=== PATIENT | female | born 1935 | race Caucasian/White ===

== ENCOUNTER 2024-05-25 14:05 | Observation (INO) | payer MEDICARE ==
[2024-05-25 15:20] LABS: INR 0.9 (<1.2); Partial Thromboplastin Time 22.6 sec (22.0-30.0); Prothrombin Time 10.3 sec (10.0-12.5)
[2024-05-25 15:23] LABS: ALT 37 U/L (4-34); AST 36 U/L (14-36); African American GFR (CKD) 48 (>60 ml/min/1.73 sqM); Albumin 4.8 g/dL (3.5-5.0); Alkaline Phosphatase 56 U/L (38-126); Anion Gap 7 mmol/L; Blood Urea Nitrogen 31 mg/dL (7-17); Calcium 10.7 mg/dL (8.4-10.2); Carbon Dioxide 28 mmol/L (22-30); Chloride 96 mmol/L (98-107); Glucose 106 mg/dL (74-99); Magnesium 1.7 mg/dL (1.6-2.3); Non-African American GFR(CKD) 42 (>60 ml/min/1.73 sqM); Potassium 4.8 mmol/L (3.5-5.1); Sodium 131 mmol/L (137-145); Total Bilirubin 0.8 mg/dL (0.2-1.3); Total Protein 7.8 g/dL (6.3-8.2)
[2024-05-25 15:38] LABS: Basophils % (A) 0 %; Eosinophils # (A) 0.3 k/uL (0-0.7); Eosinophils % (A) 2 %; HCT 37.5 % (34.0-46.0); HGB 12.4 gm/dL (11.4-16.0); Lymphocytes # (A) 0.9 k/uL (1.0-4.8); Lymphocytes % (A) 8 %; MCH 32.8 pg (25.0-35.0); MCHC 33.2 g/dL (31.0-37.0); MCV 98.9 fL (80.0-100.0); Mean Platelet Volume 8.6; Monocytes # (A) 0.3 k/uL (0-1.0); Monocytes % (A) 2 %; Neutrophils % (A) 87 %; Platelet Count 346 k/uL (150-450); RBC 3.79 m/uL (3.80-5.40); RDW 13.3 % (11.5-15.5); WBC 11.5 k/uL (3.8-10.6)
[2024-05-25] MEDS ORDERED: NALOXONE 0.4 MG/ML 1 ML VIAL IVP PRN (15:44)
[2024-05-25] MEDS ORDERED: ACETAMINOPHEN TAB 325 MG TAB PO PRN (15:44)
--- NOTE | 2024-05-25 15:52 | ED ---
General Adult HPI - General Chief complaint: Recheck/Abnormal Lab/Rx Stated complaint: Abd labs Time Seen by Provider: 05/25/24 14:32 Source: patient, RN notes reviewed, old records reviewed Mode of arrival: ambulatory Limitations: no limitations - History of Present Illness Initial comments: 88-year-old female who presents from outpatient CT for evaluation of abnormal CT scan of the chest. Patient was noted to have pneumomediastinum on CT scan and s ent to the emergency department for evaluation. She reports chronic cough and dyspnea which is unchanged from baseline. No fever. - Related Data Home Medications Medication Instructions Recorded Confirmed Cetirizine HCl [Zyrtec] 10 mg PO DAILY 05/25/24 05/25/24 Cinnamon(Unknown Dose) 1 tab PO DAILY 05/25/24 05/25/24 Losartan [Cozaar] 50 mg PO DAILY 05/25/24 05/25/24 Melatonin(Unknown Dose) 1 tab PO HS 05/25/24 05/25/24 Naproxen Sodium [Aleve] 220 mg PO DAILY 05/25/24 05/25/24 Simvastatin [Zocor] 20 mg PO DAILY 05/25/24 05/25/24 Sodium Chloride 5% Ophth Soln 1 drops BOTH EYES BID 05/25/24 05/25/24 [Carol 128] Triamterene-Hctz 37.5-25Mg 1 cap PO DAILY 05/25/24 05/25/24 [Dyazide 37.5-25 Capsule] Vit C/E/Zn/Coppr/Lutein/Zeaxan 1 cap PO BID 05/25/24 05/25/24 [Preservision Areds 2 Softgel] predniSONE 10 mg PO DAILY 05/25/24 05/25/24 Allergies Allergy/AdvReac Type Severity Reaction Status Date / Time No Known Allergies Allergy Verified 05/25/24 16:40 Review of Systems ROS Statement: Those systems with pertinent positive or pertinent negative responses have been documented in the HPI. ROS Other: All systems not noted in ROS Statement are negative. Past Medical History Past Medical History: Hypertension History of Any Multi-Drug Resistant Organisms: None Reported Past Surgical History: Hysterectomy Past Psychological History: No Psychological Hx Reported Smoking Status: Never smoker Past Alcohol Use History: None Reported Past Drug Use History: None Reported General Exam Limitations: no limitations General appearance: alert, in no apparent distress Head exam: Present: atraumatic Eye exam: Present: normal appearance, PERRL ENT exam: Present: normal exam Neck exam: Present: normal inspection. Absent: tenderness, meningismus Respiratory exam: Present: rales, decreased breath sounds. Absent: respiratory distress Cardiovascular Exam: Present: regular rate, normal rhythm GI/Abdominal exam: Present: soft. Absent: distended Extremities exam: Present: normal inspection, normal capillary refill Neurological exam: Present: alert, oriented X3. Absent: motor sensory deficit Psychiatric exam: Present: normal affect, normal mood Skin exam: Present: warm, dry, intact. Absent: cyanosis, diaphoretic Course Vital Signs 05/25/24 05/25/24 05/25/24 14:23 14:53 15:09 Temperature 97.5 F L Pulse Rate 71 73 Respiratory 16 20 20 Rate Blood Pressure 146/83 132/59 O2 Sat by Pulse 98 98 Oximetry 05/25/24 05/25/24 05/25/24 15:28 16:00 17:00 Temperature Pulse Rate 68 75 75 Respiratory 16 20 16 Rate Blood Pressure 135/74 115/70 115/76 O2 Sat by Pulse 98 98 96 Oximetry 05/25/24 05/26/24 05/26/24 18:00 00:16 06:24 Temperature Pulse Rate 78 66 75 Respiratory 20 18 18 Rate Blood Pressure 90/70 149/73 143/73 O2 Sat by Pulse 98 98 97 Oximetry 05/26/24 07:42 Temperature 97.7 F Pulse Rate 67 Respiratory 20 Rate Blood Pressure 144/96 O2 Sat by Pulse 98 Oximetry Medical Decision Making - Medical Decision Making Was pt. sent in by a medical professional or institution (KAYY Kelly, MEDICAL INTERPRETER, urgent care, hospital, or [facility]...) When possible be specific @ -No Did you speak to anyone other than the patient for history (EMS, parent, family, police, friend...)? What history was obtained from this source @ -No Did you review nursing and triage notes (agree or disagree)? Why? @ -I reviewed and agree with nursing and triage notes Were old charts reviewed (outside hosp., previous admission, EMS record, old EKG, old radiological studies, urgent care reports/EKG's, [facility] records)? Report findings @ -No old charts were reviewed Differential Dyspnea: Coronary syndrome, arrhythmia, tamponade, asthma, COPD, pulmonary embolism, pneumonia, pneumothorax, pulmonary effusion, anaphylaxis, diabetic ketoacidosis, flailed chest, pulmonary contusion, diaphragmatic rupture, anemia, neuromuscular, this is not meant to be an all-inclusive list. EKG interpreted by me (3pts min.). @Sinus rhythm rate of 68, CO interval 148, QRS duration 74, QTc [address] segment elevation. X-rays interpreted by me (1pt min.). @ -None done CT interpreted by me (1pt min.). @Patient CT of the chest showing diffuse pneumomediastinum, no pneumothorax. U/S interpreted by me (1pt. min.). @ -None done What testing was considered but not performed or refused? (CT, X-rays, U/S, labs)? Why? @ -None What meds were considered but not given or refused? Why? @ -None Did you discuss the management of the patient with other professionals (professionals i.e. DrLuis, PA, MEDICAL INTERPRETER, lab, RT, psych nurse, social scientist, wrapper stripper, teacher, foreign service officer, gearcase assembler)? Give summary @ -Dr. Briceño and Dr. Albert Was smoking cessation discussed for >3mins.? @ -No Was critical care preformed (if so, how long)? @ -No Were there social determinants of health that impacted care today? How? (Homelessness, low income, unemployed, alcoholism, drug addiction, transportation, low edu. Level, literacy, decrease access to med. care, nursing home, rehab)? @ -No Was there de-escalation of care discussed even if they declined (Discuss DNR or withdrawal of care, Hospice)? DNR status @ -No What co-morbidities impacted this encounter? (DM, HTN, Smoking, COPD, CAD, Cancer, CVA, ARF, Chemo, Hep., AIDS, mental health diagnosis, sleep apnea, morbid obesity)? @ - being worked up for interstitial lung disease. Was patient admitted / discharged? Hospital course, mention meds given and route, prescriptions, significant lab abnormalities, going to OR and other pertinent info. @ -[Patient admitted to internal medicine with pulmonology on consult for pneumomediastinum. Patient has mild leukocytosis, otherwise normal CBC and CMP. Undiagnosed new problem with uncertain prognosis? @ -No Drug Therapy requiring intensive monitoring for toxicity (Heparin, Nitro, Insulin, Cardizem)? @ -No Were any procedures done? @ -No Diagnosis/symptom? @ -Pneumomediastinum Acute, or Chronic, or Acute on Chronic? @Likely acute Uncomplicated (without systemic symptoms) or Complicated (systemic symptoms)? @ -Default Side effects of treatment? @ -No Exacerbation, Progression, or Severe Exacerbation? @ -No Poses a threat to life or bodily function? How? (Chest pain, [place], [place], pneumonia, PE, COPD, DKA, ARF, appy, cholecystitis, CVA, Diverticulitis, Homicidal, Suicidal, threat to staff... and all critical care pts) @ -Risk of sepsis,resp failure - Lab Data Result diagrams: 05/25/24 14:58 05/25/24 14:58 Lab Results 05/25/24 05/25/24 05/25/24 Range/Units 14:58 14:58 14:58 WBC 11.5 H (3.8-10.6) k/uL RBC 3.79 L (3.80-5.40) m/uL Hgb 12.4 (11.4-16.0) gm/dL Hct 37.5 (34.0-46.0) % MCV 98.9 (80.0-100.0) fL MCH 32.8 (25.0-35.0) pg MCHC 33.2 (31.0-37.0) g/dL RDW 13.3 (11.5-15.5) % Plt Count 346 (150-450) k/uL MPV 8.6 Neutrophils % 87 % Lymphocytes % 8 % Monocytes % 2 % Eosinophils % 2 % Basophils % 0 % Neutrophils # 10.0 H (1.3-7.7) k/uL Lymphocytes # 0.9 L (1.0-4.8) k/uL Monocytes # 0.3 (0-1.0) k/uL Eosinophils # 0.3 (0-0.7) k/uL Basophils # 0.0 (0-0.2) k/uL PT 10.3 (10.0-12.5) sec INR 0.9 (<1.2) APTT 22.6 (22.0-30.0) sec Sodium 131 L (137-145) mmol/L Potassium 4.8 (3.5-5.1) mmol/L Chloride 96 L (98-107) mmol/L Carbon Dioxide 28 (22-30) mmol/L Anion Gap 7 mmol/L BUN 31 H (7-17) mg/dL Creatinine 1.18 H (0.52-1.04) mg/dL Est GFR (CKD-EPI)AfAm 48 (>60 ml/min/1.73 sqM) Est GFR (CKD-EPI)NonAf 42 (>60 ml/min/1.73 sqM) Glucose 106 H (74-99) mg/dL Calcium 10.7 H (8.4-10.2) mg/dL Magnesium 1.7 (1.6-2.3) mg/dL Total Bilirubin 0.8 (0.2-1.3) mg/dL AST 36 (14-36) U/L ALT 37 H (4-34) U/L Alkaline Phosphatase 56 (38-126) U/L Total Protein 7.8 (6.3-8.2) g/dL Albumin 4.8 (3.5-5.0) g/dL Disposition Clinical Impression: Pneumomediastinum Disposition: ADMITTED IP TO THIS HOSP Condition: Stable Is patient prescribed a controlled substance at d/c from ED?: No Time of Disposition: 15:51
[2024-05-25] MEDS: IPRATROPIUM-ALBUTEROL 3 ML NEB INHALATION SCH (17:06)
[2024-05-25] MEDS ORDERED: ALBUTEROL NEBULIZED 2.5 MG/3 ML INHALATION PRN (23:40)
[2024-05-26] MEDS ORDERED: BENZONATATE 100 MG CAP PO PRN (01:38)
--- NOTE | 2024-05-26 02:04 | P.CNPUL ---
History of Present Illness Consult date: 05/26/24 Requesting physician: Ayden Martines Reason for consult: other (Pneumomediastinum) Chief complaint: Abnormal CT findings, sent in by purchasing and claims supervisor History of present illness: Patient is a 88-year-old female with past medical history significant for hypertension, hyperlipidemia, insomnia. Since February, patient has been struggling with progressively worsening shortness of breath and a chronic persistent dry cough. She is recently evaluated in the pulmonary office by Dr. Briceño. Currently, being worked up for interstitial lung disease/UIP. Did have a chest CT without contrast done outpatient. This revealed diffuse honeycombing with reticular opacities suggestive of UIP. This is being followed up in the office. There was incidentally a pneumomediastinum with an additional single foci of gas identified along the left anterior hemidiaphragm which may be tracking from the pneumomediastinum versus pneumoperitoneum. No pneumothoraces noted. Patient's abdomen does not appear acute; doubt pneumoperitoneum or ruptured abdominal viscus. She denies any chest pain. Her shortness of breath has progressively been worsening since February. No significant coughing fits or recent exacerbations of her chronic lung disease. No recent trauma or surgical procedures. She denies any recent episodes of intractable nausea and vomiting. Denies any painful swallowing. Does admit chronic dysphagia. Does admit voice changes over the last couple days. She is currently being evaluated in the emerg ency department, room 1. She is resting comfortably on room air in no acute distress. There is some voice hoarseness. No subcutaneous emphysema. Denies fevers. She is anxious to go home. is at bedside. CBC: WBC count 11.5, hemoglobin 12.4, hematocrit 37.5, platelets 346. CMP: Sodium 131, potassium 4.8, chloride 96, serum bicarb 28, BUN 31, creatinine 1.18, glucose 106. No signs of malignant pneumomediastinum. Vitals are stable. Patient is being admitted for observation. Review of Systems Constitutional: Denies chills, Denies fever, Denies weight gain, Denies weight loss Ears, nose, mouth and throat: Reports voice changes, Denies dysphagia, Denies nasal congestion, Denies nasal discharge, Denies neck fullness/pressure, Denies odynophagia, Denies sinus pressure, Denies sore throat Cardiovascular: Denies chest pain, Denies leg edema, Denies orthopnea, Denies palpitations, Denies paroxysmal nocturnal dyspnea, Denies syncope Respiratory: Reports cough, Reports dyspnea, Reports pain on inspiration, Denies excessive sputum, Denies wheezing Gastrointestinal: Denies abdominal pain, Denies change in bowel habits, Denies hematemesis, Denies nausea, Denies vomiting Musculoskeletal: Denies limitation of motion Past Medical History Past Medical History: Hypertension History of Any Multi-Drug Resistant Organisms: None Reported Past Surgical History: Hysterectomy Past Psychological History: No Psychological Hx Reported Smoking Status: Never smoker Past Alcohol Use History: None Reported Past Drug Use History: None Reported Medications and Allergies Home Medications Medication Instructions Recorded Confirmed Type Cetirizine HCl [Zyrtec] 10 mg PO DAILY 05/25/24 05/25/24 History Cinnamon(Unknown Dose) 1 tab PO DAILY 05/25/24 05/25/24 History Losartan [Cozaar] 50 mg PO DAILY 05/25/24 05/25/24 History Melatonin(Unknown Dose) 1 tab PO HS 05/25/24 05/25/24 History Naproxen Sodium [Aleve] 220 mg PO DAILY 05/25/24 05/25/24 History Simvastatin [Zocor] 20 mg PO DAILY 05/25/24 05/25/24 History Sodium Chloride 5% Ophth Soln 1 drops BOTH EYES BID 05/25/24 05/25/24 History [Carol 128] Triamterene-Hctz 37.5-25Mg 1 cap PO DAILY 05/25/24 05/25/24 History [Dyazide 37.5-25 Capsule] Vit C/E/Zn/Coppr/Lutein/Zeaxan 1 cap PO BID 05/25/24 05/25/24 History [Preservision Areds 2 Softgel] predniSONE 10 mg PO DAILY 05/25/24 05/25/24 History Allergies Allergy/AdvReac Type Severity Reaction Status Date / Time No Known Allergies Allergy Verified 05/25/24 16:40 Physical Exam Vitals: Vital Signs Temp Pulse Resp BP Pulse Ox 05/26/24 00:16 66 18 149/73 98 05/25/24 18:00 78 20 90/70 98 05/25/24 17:00 75 16 115/76 96 05/25/24 16:00 75 20 115/70 98 05/25/24 15:28 68 16 135/74 98 05/25/24 15:09 20 05/25/24 14:53 73 20 132/59 98 05/25/24 14:23 97.5 F L 71 16 146/83 98 Intake and Output 05/25/24 05/25/24 05/26/24 14:59 22:59 06:59 Other: Weight 52.163 kg GENERAL EXAM: Alert, 88-year-old female, comfortable in no apparent distress. HEAD: Normocephalic and atraumatic EYES: Normal reaction of pupils, equal size. NOSE: Clear with pink turbinates. THROAT: No erythema or exudates. NECK: No masses, no JVD. No subcutaneous emphysema. CHEST: No chest wall deformity. LUNGS: Equal air entry with no crackles, wheeze, rhonchi or dullness. Room air. SpO2 98%. No conversational dyspnea or accessory muscle use.. CVS: S1 and S2 normal with no audible murmur, regular rhythm. Ashia's sign ABDOMEN: No hepatosplenomegaly, active bowel sounds, no guarding or rigidity. SPINE: No scoliosis or deformity SKIN: No rashes CENTRAL NERVOUS SYSTEM: No focal deficits, tone is normal in all 4 extremities. EXTREMITIES: There is no peripheral edema, clubbing, or cyanosis. Peripheral pulses are intact. Results - Laboratory Findings CBC and BMP: 05/25/24 14:58 05/25/24 14:58 PT/INR, D-dimer PT 10.3 sec (10.0-12.5) 05/25/24 14:58 INR 0.9 (<1.2) 05/25/24 14:58 Abnormal lab findings: Abnormal Labs 05/25/24 05/25/24 14:58 14:58 WBC 11.5 H RBC 3.79 L Neutrophils # 10.0 H Lymphocytes # 0.9 L Sodium 131 L Chloride 96 L BUN 31 H Creatinine 1.18 H Glucose 106 H Calcium 10.7 H ALT 37 H - Diagnostic Findings CT scan - chest: image reviewed Assessment and Plan Assessment: Spontaneous pneumomediastinum Interstitial lung disease, being worked up on an outpatient basis Dysphonia Hypertension History of hyperlipidemia Plan: Patient is being admitted for observation No indication of mediastinitis or malignant pneumomediastinum No odynophagia or retractable nausea or vomiting Doubt need for esophagoscopy or bronchoscopy Possibly secondary to patient's ILD Start patient on supplemental oxygen As needed antitussives ordered Will require outpatient follow-up until resolution Case will be discussed with my supervising physician, further recommendations to follow I have personally seen and examined the patient, performed the documentation and the assessment and plan as written. Number of minutes spent on the visit:20 . Time with Patient: Greater than 30
[2024-05-26 07:46] VITALS: RESP 20; TEMP 97.7
[2024-05-26] MEDS: LOSARTAN 50 MG TAB PO SCH (08:29)
[2024-05-26] MEDS: TRIAMTERENE-HCTZ 37.5-25MG 1 EACH CAP PO SCH (08:29)
[2024-05-26] MEDS: LORATADINE 10 MG TAB PO SCH (08:30)
[2024-05-26] MEDS: ATORVASTATIN 10 MG TAB PO SCH (08:34)
--- NOTE | 2024-05-26 10:05 | P.HPIM ---
History of Present Illness H&P Date: 05/26/24 Sandra December, is an 88-year-old female, with known history of hypertension, hyperlipidemia, and interstitial lung disease followed by Dr. Briceño, who presented to [facility] emergency room after having a CT scan of the chest without contrast done as outpatient, patient had evidence of pneumomediastinum on CT scan, she was sent from radiology department to the emergency room for further evaluation. She was evaluated in the emergency room vital examination on presentation revealed a temperature of 97.5 pulse 71 respiration 16 blood pressure 146/83 pulse ox 98% on room air Laboratory data reveals a white blood count of 11.5 hemoglobin 12.4 platelet count 346 sodium 131 potassium 4.8 chloride 96 CO2 28 BUN 31 creatinine 1.18 Testing in the emergency room revealed EKG revealed sinus rhythm with a rate of 68 with borderline LVH. Patient was admitted to medical floor for further evaluation and treatment Past Medical History Past Medical History: Hypertension History of Any Multi-Drug Resistant Organisms: None Reported Past Surgical History: Hysterectomy Past Psychological History: No Psychological Hx Reported Smoking Status: Never smoker Past Alcohol Use History: None Reported Past Drug Use History: None Reported Medications and Allergies Home Medications Medication Instructions Recorded Confirmed Type Cetirizine HCl [Zyrtec] 10 mg PO DAILY 05/25/24 05/25/24 History Cinnamon(Unknown Dose) 1 tab PO DAILY 05/25/24 05/25/24 History Losartan [Cozaar] 50 mg PO DAILY 05/25/24 05/25/24 History Melatonin(Unknown Dose) 1 tab PO HS 05/25/24 05/25/24 History Naproxen Sodium [Aleve] 220 mg PO DAILY 05/25/24 05/25/24 History Simvastatin [Zocor] 20 mg PO DAILY 05/25/24 05/25/24 History Sodium Chloride 5% Ophth Soln 1 drops BOTH EYES BID 05/25/24 05/25/24 History [Carol 128] Triamterene-Hctz 37.5-25Mg 1 cap PO DAILY 05/25/24 05/25/24 History [Dyazide 37.5-25 Capsule] Vit C/E/Zn/Coppr/Lutein/Zeaxan 1 cap PO BID 05/25/24 05/25/24 History [Preservision Areds 2 Softgel] predniSONE 10 mg PO DAILY 05/25/24 05/25/24 History Allergies Allergy/AdvReac Type Severity Reaction Status Date / Time No Known Allergies Allergy Verified 05/25/24 16:40 Physical Exam Vitals: Vital Signs Temp Pulse Resp BP Pulse Ox 05/26/24 07:42 97.7 F 67 20 144/96 98 05/26/24 06:24 75 18 143/73 97 05/26/24 00:16 66 18 149/73 98 05/25/24 18:00 78 20 90/70 98 05/25/24 17:00 75 16 115/76 96 05/25/24 16:00 75 20 115/70 98 05/25/24 15:28 68 16 135/74 98 05/25/24 15:09 20 05/25/24 14:53 73 20 132/59 98 05/25/24 14:23 97.5 F L 71 16 146/83 98 In general patient is alert and oriented x 3 in no distress HEENT head normocephalic and atraumatic Neck is supple no JVD no goiter no lymphadenopathy no carotid bruit Chest examination is clear to auscultation no crackles no wheezing Cardiac exam reveals regular heart sounds S1 and S2 no gallops no murmurs Abdomen is soft nontender no organomegaly with normal bowel sounds Extremity exam reveals no edema no cyanosis or clubbing Neurological examination reveals no gross focal deficits Results CBC & Chem 7: 05/25/24 14:58 05/25/24 14:58 Labs: Abnormal Lab Results - Last 24 Hours (Table) 05/25/24 05/25/24 Range/Units 14:58 14:58 WBC 11.5 H (3.8-10.6) k/uL RBC 3.79 L (3.80-5.40) m/uL Neutrophils # 10.0 H (1.3-7.7) k/uL Lymphocytes # 0.9 L (1.0-4.8) k/uL Sodium 131 L (137-145) mmol/L Chloride 96 L (98-107) mmol/L BUN 31 H (7-17) mg/dL Creatinine 1.18 H (0.52-1.04) mg/dL Glucose 106 H (74-99) mg/dL Calcium 10.7 H (8.4-10.2) mg/dL ALT 37 H (4-34) U/L Assessment and Plan Plan: Spontaneous pneumomediastinum on CT scan of the chest done prior to admission as outpatient. Underlying history of interstitial lung disease followed by Dr. Parson Underlying history of hypertension Underlying history of hyperlipidemia History of insomnia At this time patient was seen and examined Home medications reviewed and reordered Pulmonary consultation requested Will follow during this admission for medical management
--- NOTE | 2024-05-26 10:09 | P.DS ---
Providers Date of admission: 05/25/24 15:45 Expected date of discharge: 05/26/24 Attending physician: Artem Albert Consults: 05/25/24 15:44 Consult Physician Routine Consulting Provider: Harlan Felix Consult Reason/Comments: pneumomediastinum Do you want consulting provider notified?: Yes Primary care physician: Varsha Powell [place] Hospital Course: Diagnosis on discharge: Spontaneous pneumomediastinum on CT scan of the chest done prior to admission as outpatient. Underlying history of interstitial lung disease followed by Dr. Parson Underlying history of hypertension Underlying history of hyperlipidemia History of insomnia Hospital course: Sandra Joya, is an 88-year-old female, with known history of hypertension, hyperlipidemia, and interstitial lung disease followed by Dr. Briceño, who presented to [facility] emergency room after having a CT scan of the chest without contrast done as outpatient, patient had evidence of pneumomediastinum on CT scan, she was sent from radiology department to the emergency room for further evaluation. She was evaluated in the emergency room vital examination on presentation revealed a temperature of 97.5 pulse 71 respiration 16 blood pressure 146/83 pulse ox 98% on room air Laboratory data reveals a white blood count of 11.5 hemoglobin 12.4 platelet count 346 sodium 131 potassium 4.8 chloride 96 CO2 28 BUN 31 creatinine 1.18 Testing in the emergency room revealed EKG revealed sinus rhythm with a rate of 68 with borderline LVH. Patient was admitted to medical floor for further evaluation and treatment On 05/26/2024 patient was evaluated in the emergency room, she is alert and oriented x 3 in no apparent distress, she is complaining of dry cough and shortness of breath but she stated that she is at her baseline and those symptoms are chronic for her, she denies any chest pain or any worsening in shortness of breath, there is no fever or chills no headache or dizziness no palpitation no nausea or vomiting no abdominal pain no diarrhea and no urinary symptoms. Patient was evaluated by pulmonary Dr. Felix, and was cleared for discharge, she will be followed as outpatient by her primary care physician Dr. Powell, she will also be followed by her computer graphic artist Dr. Briceño, she stated that she has an appointment with him soon. Patient was asked about oxygen she states that she does not have oxygen at home, she was offered to stay and have arrangement for home oxygen however she declined, she stated that she will discuss that with her lung doctor. Patient will be discharged to home today continue with same medications as prior to admission follow-up with Dr. Briceño in 1 to 2 days Patient Condition at Discharge: Stable Plan - Discharge Summary New Discharge Prescriptions: Continue predniSONE 10 mg PO DAILY Sodium Chloride 5% Ophth Soln [Carol 128] 1 drops BOTH EYES BID Cetirizine HCl [Zyrtec] 10 mg PO DAILY Triamterene-Hctz 37.5-25Mg [Dyazide 37.5-25 Capsule] 1 cap PO DAILY Simvastatin [Zocor] 20 mg PO DAILY Naproxen Sodium [Aleve] 220 mg PO DAILY Vit C/E/Zn/Coppr/Lutein/Zeaxan [Preservision Areds 2 Softgel] 1 cap PO BID Melatonin(Unknown Dose) 1 tab PO HS Cinnamon(Unknown Dose) 1 tab PO DAILY Losartan [Cozaar] 50 mg PO DAILY Discharge Medication List Cetirizine HCl [Zyrtec] 10 mg PO DAILY 05/25/24 [History] Cinnamon(Unknown Dose) 1 tab PO DAILY 05/25/24 [History] Losartan [Cozaar] 50 mg PO DAILY 05/25/24 [History] Melatonin(Unknown Dose) 1 tab PO HS 05/25/24 [History] Naproxen Sodium [Aleve] 220 mg PO DAILY 05/25/24 [History] Simvastatin [Zocor] 20 mg PO DAILY 05/25/24 [History] Sodium Chloride 5% Ophth Soln [Carol 128] 1 drops BOTH EYES BID 05/25/24 [History] Triamterene-Hctz 37.5-25Mg [Dyazide 37.5-25 Capsule] 1 cap PO DAILY 05/25/24 [History] Vit C/E/Zn/Coppr/Lutein/Zeaxan [Preservision Areds 2 Softgel] 1 cap PO BID 05/25/24 [History] predniSONE 10 mg PO DAILY 05/25/24 [History] Follow up Appointment(s)/Referral(s): Varsha Powell MD [Primary Care Provider] - 1-2 days Patient Instructions/Handouts: Shortness of Breath (ED)
[2024-05-26 10:17] VITALS: BP 129/76; PULSE 70
== END 2024-05-26 10:16 | disposition home or self-care (01) ==
LOC: EC 14:05 → 3SCARD 15:45
PROVIDERS: ADMIT Internal Medicine; ATTEND Internal Medicine
DX: J98.2 Interstitial emphysema (principal); I10 Essential (primary) hypertension; E78.5 Hyperlipidemia, unspecified; G47.00 Insomnia, unspecified; Z79.899 Other long term (current) drug therapy; Z90.710 Acquired absence of both cervix and uterus
CPT/HCPCS: 99284; 36415; 93005; 80053; 83735; 85025; 85610; 85730; G0378 ×2

== ENCOUNTER → 2024-05-25 | Outpatient (CLI) | payer MEDICARE ==
--- NOTE | 2024-05-25 11:40 | CT ---
INDICATION: Patient age:Female; 88 years old; Reason for study: J84.9 INTERSTITIAL PULMONARY DISEASE; PHH. COMPARISON: Chest radiograph 05/11/2024 TECHNIQUE: Multiple thin axial images were obtained through the chest at selected intervals. Supine inspiratory along with supine expiratory images were submitted for review. Patient could not lay on stomach for p rosalinda position imaging. Please note that due to interval acquisition images as defined by high-resolut ion CT protocol the entire lung parenchyma is not evaluated, therefore small nodular densities may no t be visualized. Evaluation of vascular structures, viscera and lymphatics is limited due to lack of intravenous contrast administration. One or more CT dose reduction strategies were utilized during t his examination. Total DLP 424.60 mGycm. FINDINGS: LUNGS: Scattered regions of honeycombing throughout the lungs. Bronchial dilatation identified. Diffu se scattered reticular interstitial thickening. No focal consolidation. No pneumothorax. LARGE AIRWAYS: Central airways are patent. No dynamic airway collapse on expiratory imaging. PLEURA: No pleural effusion or thickening. HEART AND PERICARDIUM: Heart is normal in size. There is no pericardial effusion. Mild coronary arter y calcifications present. Pneumomediastinum identified. MEDIASTINUM AND DIIMTRI: No mediastinal or hilar lymphadenopathy or soft tissue mass. VESSELS: The thoracic aorta is normal in course and caliber. Mild atherosclerotic calcification of t he aorta. CHEST WALL AND DIAPHRAGM: Normal. LOWER NECK: Normal. UPPER ABDOMEN: Single focus of gas along the left anterior diaphragmatic surface (series 6, image 252 ). MUSCULOSKELETAL: No acute fracture. Bilateral AC joint arthropathy. IMPRESSION: 1. Pneumomediastinum with additional single focus of gas identified along the left anterior hemidiap hragm which may be tracking from pneumomediastinum versus pneumoperitoneum. Unclear source of pneumom ediastinum. 2. Findings of diffuse honeycombing with reticular opacities suggestive of UIP. A [place] level critical message alert has been initiated for Bruce Briceño MD~[id number] via the [employer] Critical Results System on 05/25/2024 11:37 AM. This message alert has been sent to Bruce Briceño MD~[id number] via the preferences provided by the clinician for the receipt of Radiology Critical Findi ngs. Message ID [id number]. [facility], , 05/25/2024 11:37 AM
== END | disposition home or self-care (01) ==
LOC: RADCTMAIN 10:39
PROVIDERS: ATTEND Internal Medicine
DX: J84.9 Interstitial pulmonary disease, unspecified
CPT/HCPCS: 71250